=== PATIENT | female | born 1980 | race Caucasian/White ===

== ENCOUNTER 2017-03-29 12:49 | Outpatient (CLI) | payer SELFPAY ==
--- NOTE | 2017-03-30 12:41 | Ultrasound Report ---
FINAL REPORT EXAM: US OB LIMITED HISTORY: well being TECHNIQUE: Transabdominal OB ultrasound. PRIORS: None currently available. FINDINGS: Single intrauterine . Presentation: Cephalic. heart rate: 133 BPM. Amniotic fluid index: 9.94 cm. Within normal limits. IMPRESSION: Single live intrauterine .
--- NOTE | 2017-03-30 12:41 | Ultrasound Report ---
FINAL REPORT EXAM: US OB BPP WO NON-STRESS HISTORY: well being TECHNIQUE: Biophysical profile PRIORS: None currently available. FINDINGS: Breathin Gross Body Movements: 2 Tone: 2 Qualitative AFV: 2 IMPRESSION: Biophysical profile score 8/8.
== END 2017-03-29 16:00 | disposition home or self-care (01) ==
LOC: TRG 12:49
PROVIDERS: ATTEND Obstetrics & Gynecology
DX: O09.523 Supervision of elderly multigravida, third trimester (principal); O48.0 Post-term pregnancy; Z3A.41 41 weeks gestation of pregnancy
CPT/HCPCS: 59025; 76815; 76819

== ENCOUNTER 2017-03-30 21:11 | Inpatient (IN) | payer SELFPAY ==
[2017-03-30] MEDS ORDERED: LACTATED RINGERS 1,000 ML ONE (22:17)
== END 2017-03-31 00:19 | disposition home or self-care (01) | DRG 781 ==
LOC: LD 21:11
PROVIDERS: ADMIT Obstetrics & Gynecology; ATTEND Obstetrics & Gynecology
DX: O26.893 Other specified pregnancy related conditions, third trimester (principal); Z3A.41 41 weeks gestation of pregnancy
CPT/HCPCS: 96360; 96361; J7120

== ENCOUNTER 2017-04-03 09:30 | Inpatient (IN) | payer MEDICAID, OTHER ==
[2017-04-03] MEDS ORDERED: SUBLIMAZE IV PRN (09:50)
[2017-04-03] MEDS ORDERED: XYLOCAINE 2% INFILTRATI ONE (09:50)
[2017-04-03] MEDS ORDERED: BRETHINE IVP PRN (09:50)
[2017-04-03] MEDS ORDERED: ePHEDrine SULFATE IV PRN ×2 (09:50→12:21)
[2017-04-03] MEDS ORDERED: MINERAL OIL PO PRN (09:50)
[2017-04-03] MEDS ORDERED: BRETHINE SUB-Q PRN (09:50)
--- NOTE | 2017-04-03 09:53 | History and Physical Report ---
History of Present Illness Date of examination: 04/03/17 Date of admission: 04/03/17 09:43 Chief complaint: active labor History of present illness: now 41.4 weeks presents in active labor. Uneventful course at [facility]. GBS neg. Past History Past Medical History: no pertinent history Past Surgical History: no surgical history Family/Genetic History: none - Obstetrical History Expected Date of Delivery: 03/23/17 Actual Gestation: 41 Week(s) 4 Day(s) : 3 Para: 2 Hx # Term Pregnancies: 2 Number of Living Children: 2 Medications and Allergies Allergies Allergy/AdvReac Type Severity Reaction Status Date / Time No Known Allergies Allergy Verified 03/29/17 13:11 Home Medications Medication Instructions Recorded Confirmed Last Taken Type No Known Home Medications [No 11/17/15 11/17/15 Unknown History Reported Home Medications] Active Meds: Active Medications Ephedrine Sulfate (Ephedrine Sulfate) 10 mg IV Q2M PRN PRN Reason: Hypotension Fentanyl (Sublimaze) 100 mcg IV Q2H PRN PRN Reason: Labor Pain Lactated Ringer's (Lactated Ringers) 1,000 mls @ 125 mls/hr IV DIRECT NIRMALA Oxytocin/Sodium Chloride (Pitocin/Ns 20 Unit/1000ml Drip) 20 units in 1,000 mls @ 125 mls/hr IV DIRECT NIRMALA Lidocaine (Xylocaine 2%) 20 ml INFILTRATI ONCE ONE Stop: 04/03/17 09:51 Mineral Oil (Mineral Oil) 30 ml PO QHS PRN PRN Reason: Constipation Terbutaline Sulfate (Brethine) 0.25 mg SUB-Q ONCE PRN PRN Reason: Hyperstimulation/Hypertonicity Terbutaline Sulfate (Brethine) 0.25 mg IVP ONCE PRN PRN Reason: Hyperstimulation/Hypertonicity Review of Systems All systems: negative - Physical Exam Breasts: Positive: deferred, mass Abdomen: Positive: soft Genitourinary (Female): Positive: normal external genitalia Vulva: both: normal Vagina: Positive: normal moisture Uterus: Positive: enlarged Anus/Rectum: Positive: normal perianal skin Extremities: Positive: normal Deep Tendon Reflex Grade: Normal +2 - Obstetrical FHR: category 1 Uterine Contraction Monitor Mode: External Cervical Dilatation: 8.5 (arom@ 1400 hrs light mec) Cervical Effacement Percentage: 100 station: -1 Uterine Contraction Frequency (min): q2-3 mild Uterine Contraction Pattern: Regular Uterine Contraction Intensity: Mild Results Result Diagrams: 04/03/17 09:45 All other labs normal. Assessment and Plan A: IUP @ 41.4 weeks Active labor Lt. Meconium on AROM P; GBS Negative Epidural placed
[2017-04-03] MEDS ORDERED: PITOCin/NS 20 UNIT/1000ML DRIP 20 UNITS/1,000 ML BAG IV SCH (10:00)
[2017-04-03 10:41] LABS: Mean Corpuscular HGB Conc 35 % (30-34); Mean Corpuscular Hemoglobin 29 pg (28-32); Mean Corpuscular Volume 83 fl (79-97); Platelet Count 211 K/mm3 (140-440); Red Blood Count 4.45 M/mm3 (3.65-5.03); Red Cell Distribution Width 14.9 % (13.2-15.2); White Blood Count 12.4 K/mm3 (4.5-11.0)
[2017-04-03] MEDS: LACTATED RINGERS 1,000 ML IV SCH ×2 (10:45→11:51)
[2017-04-03] MEDS ORDERED: fentaNYL-BUPIV 2 MCG/ML-0.125% 200 MCG/100 ML BAG EPIDURAL ONE (11:46)
[2017-04-03] MEDS ORDERED: NARCAN 2 MG/2 ML IV PRN (12:21)
--- NOTE | 2017-04-03 12:21 | Anesthesia Consultation ---
Anesthesia Consult and Med Hx Date of service: 04/03/17 - Airway Anesthetic Teeth Evaluation: Good ROM Head & Neck: Adequate Mental/Hyoid Distance: Adequate Mallampati Class: Class II Intubation Access Assessment: Probably Good - Pre-Operative Health Status ASA Pre-Surgery Classification: ASA3 Proposed Anesthetic Plan: Epidural, Spinal - Pulmonary Hx Asthma: No COPD: No Hx Pneumonia: No - Cardiovascular System Hx Hypertension: No - Central Nervous System Hx Seizures: No Hx Psychiatric Problems: No - Endocrine Hx Renal Disease: No Hx End Stage Renal Disease: No Hx Hypothyroidism: No Hx Hyperthyroidism: No - Hematic Hx Anemia: No Hx Sickle Cell Disease: No - Other Systems Hx Alcohol Use: No Hx Obesity: Yes (BMI 42.9)
[2017-04-03] MEDS ORDERED: fentaNYL-BUPIV 2 MCG/ML-0.125% 200 MCG/100 ML BAG EPIDURAL SCH (13:00)
[2017-04-03] MEDS ORDERED: BOOSTRIX IM ONE (13:16)
[2017-04-03] MEDS ORDERED: Fluarix Quad 2017-2018(36 MOS+ IM ONE (13:16)
[2017-04-03] MEDS ORDERED: PITOCin/NS 30 UNIT/500ML 30 UNITS/500 ML BAG IV SCH (15:00)
--- NOTE | 2017-04-03 16:20 | Procedure Note ---
OB Delivery Note - Delivery Date of Delivery: 04/03/17 Surgeon: TIERA CAMPBELL Estimated blood loss: 200cc - Vaginal Delivery presentation: vertex Delivery position: OA Intrapartum events: meconium Delivery induction: none Delivery augmentation: rupture of membranes Delivery monitor: external FHT, external uterine Route of delivery: Delivery placenta: spontaneous Delivery laceration: 1st degree Delivery repair: vicryl Anesthesia: epidural Delivery comments: of a viable female 9# 2oz on 04/03/2017 @ 1557 over first degree laceration. Apgars 9/9. Placenta delivered 3VCI. Laceration repaired with 2-0 vicryl. Mother and baby doing well. - A at 1 minute: 9 at 5 minutes: 9 Infant Gender: Female (9# 2oz)
[2017-04-04] MEDS: MOTRIN PO PRN ×4 (00:30→20:01)
[2017-04-04] MEDS ORDERED: BOOSTRIX IM ONE (06:00)
[2017-04-04] MEDS ORDERED: LANSINOH TP PRN (07:30)
[2017-04-04] MEDS ORDERED: MILK OF MAGNESIA PO PRN (07:30)
[2017-04-04] MEDS ORDERED: TYLENOL PO PRN (07:30)
[2017-04-04] MEDS ORDERED: ZOFRAN IV PRN (07:30)
[2017-04-04] MEDS ORDERED: PHENERGAN PO PRN (07:30)
[2017-04-04] MEDS ORDERED: TUCKS PAD TP PRN (07:30)
[2017-04-04] MEDS ORDERED: BENADRYL PO PRN (07:30)
[2017-04-04 07:37] LABS: Hematocrit 34.6 % (30.3-42.9); Hemoglobin 11.4 gm/dl (10.1-14.3)
[2017-04-04] MEDS ORDERED: SENOKOT S PO SCH (08:00)
[2017-04-04] MEDS ORDERED: SODIUM CHLORIDE FLUSH SYRINGE 10 ML IV PRN (08:00)
[2017-04-04] MEDS ORDERED: DULCOLAX PR PRN (10:00)
[2017-04-04] MEDS ORDERED: FEOSOL PO SCH (10:00)
[2017-04-04] MEDS ORDERED: PRENATAL VITAMIN PO SCH (10:00)
[2017-04-04] MEDS ORDERED: COLACE PO SCH (10:00)
--- NOTE | 2017-04-04 10:30 | Progress Note ---
Assessment and Plan A: PP Day #1 Stable P: Follow Routine Orders D/C home today per patient request RTO in 6 Weeks Subjective - Subjective Date of service: 04/04/17 Patient reports: appetite normal, voiding normally, pain well controlled, flatus , ambulating normally : doing well, bottle feeding Objective - Vital Signs Latest vital signs: Vital Signs Temp Pulse Resp BP BP Pulse Ox 04/04/17 08:15 97.1 F L 60 20 90/51 04/04/17 05:21 97.7 F 20 105/62 04/04/17 00:32 98.5 F 22 114/70 04/04/17 00:30 18 04/03/17 20:24 98.7 F 84 20 115/67 97 04/03/17 18:21 80 128/65 04/03/17 18:06 85 127/76 04/03/17 17:51 82 135/77 04/03/17 17:36 88 141/86 04/03/17 17:21 81 121/73 04/03/17 17:06 82 121/70 04/03/17 16:52 84 122/73 04/03/17 16:36 78 117/69 04/03/17 16:21 90 119/75 04/03/17 15:56 86 97 04/03/17 15:51 90 97 04/03/17 15:46 78 97 04/03/17 15:41 90 97 04/03/17 15:36 86 98 04/03/17 15:31 89 97 04/03/17 15:26 80 98 04/03/17 15:21 82 97 04/03/17 15:16 92 H 98 04/03/17 15:11 78 97 04/03/17 15:06 77 97 04/03/17 15:01 79 98 04/03/17 14:56 81 98 04/03/17 14:51 73 98 04/03/17 14:46 83 98 04/03/17 14:41 77 98 04/03/17 14:36 79 99 04/03/17 14:31 74 98 04/03/17 14:26 74 98 04/03/17 14:21 81 98 04/03/17 14:16 75 98 04/03/17 14:11 81 99 04/03/17 14:06 73 98 04/03/17 14:01 77 99 04/03/17 13:56 74 98 04/03/17 13:51 79 99 04/03/17 13:46 72 98 04/03/17 13:41 74 98 04/03/17 13:36 72 98 04/03/17 13:31 78 98 04/03/17 13:26 75 98 04/03/17 13:21 76 98 04/03/17 13:16 74 97 04/03/17 13:11 75 98 04/03/17 13:06 72 98 04/03/17 13:01 75 98 04/03/17 12:56 80 98 04/03/17 12:51 72 98 04/03/17 12:46 72 98 04/03/17 12:41 73 98 04/03/17 12:36 87 97 04/03/17 12:31 76 97 04/03/17 12:26 75 97 04/03/17 12:21 85 97 04/03/17 12:16 85 97 04/03/17 12:11 82 97 04/03/17 12:06 83 97 04/03/17 12:01 84 96 04/03/17 11:56 85 96 04/03/17 11:52 16 116/73 04/03/17 11:51 81 96 04/03/17 11:46 107 H 96 04/03/17 11:41 83 97 04/03/17 11:36 86 98 04/03/17 11:31 82 98 04/03/17 11:26 87 96 04/03/17 11:21 83 97 04/03/17 11:16 89 97 04/03/17 11:11 94 H 99 04/03/17 11:06 81 98 04/03/17 11:01 91 H 98 04/03/17 10:56 82 99 04/03/17 10:51 98 H 99 Intake and Output 04/03/17 04/04/17 04/04/17 22:59 06:59 14:59 Intake Total 360 360 Output Total 1000 600 Balance -640 -240 Intake: Oral 360 Intake, Free Water 360 Output: Urine 1000 600 Void 1000 600 Other: Total, Intake Amount 360 Total, Output Amount 1000 600 Estimated Blood Loss 200 - Exam Breasts: Present: normal Cardiovascular: Present: Regular rate Lungs: Present: Clear to auscultation, Normal air movement Abdomen: Present: normal appearance, soft, normal bowel sounds Uterus: Present: normal, firm, fundal height below umbilicus Extremities: Present: normal - Labs Labs: Abnormal lab results 04/03/17 Range/Units 09:45 WBC 12.4 H (4.5-11.0) K/mm3 MCHC 35 H (30-34) %
--- NOTE | 2017-04-04 10:31 | Discharge Summary ---
Providers - Providers Date of Admission: 04/03/17 09:43 Date of discharge: 04/04/17 Attending physician: HELEN HIGGINS MD Primary care physician: HELEN HIGGINS MD Hospitalization Reason for admission: active labor Delivery: Episiotomy: none Laceration: 1st degree Other procedures: none complications: none Discharge diagnosis: IUP at term delivered [place] baby: female Condition at discharge: Good Disposition: DC-01 TO HOME OR SELFCARE Plan - Provider Discharge Summary Activity: routine, no sex for 6 weeks, no heavy lifting 4 weeks, no strenuous exercise Diet: routine Instructions: routine Additional instructions: [] Smoking cessation referral if applicable(refer to patient education folder for contact #) [] Refer to [facility]'s [facility] Booklet Call your doctor immediately for: * Fever > 100.5 * Heavy vaginal bleeding ( >1 pad per hour) * Severe persistent headache * Shortness of breath * Reddened, hot, painful area to leg or breast * Drainage or odor from incision. * Keep incision clean and dry at all times and follow doctor's instructions regarding bathing/showering - Follow up plan Follow up: HELEN HIGGINS MD [Primary Care Provider] - 6 Weeks
[2017-04-04] MEDS ORDERED: Fluarix Quad 2017-2018(36 MOS+ IM ONE (12:00)
[2017-04-04 19:08] VITALS: BP 122/66
== END 2017-04-04 20:30 | disposition home or self-care (01) | DRG 775 ==
LOC: TRG 09:30 → LD 09:43 → OB 19:18
PROVIDERS: ADMIT Obstetrics & Gynecology; ATTEND Obstetrics & Gynecology
PROC: 10E0XZZ Delivery of Products of Conception, External Approach (ICD-10-PCS; principal; 2017-04-03)
PROC: 0HQ9XZZ Repair Perineum Skin, External Approach (ICD-10-PCS; 2017-04-03)
PROC: 3E0R3BZ Introduction of Anesthetic Agent into Spinal Canal, Percutaneous Approach (ICD-10-PCS; 2017-04-03)
PROC: 00HU33Z Insertion of Infusion Device into Spinal Canal, Percutaneous Approach (ICD-10-PCS; 2017-04-03)
PROC: 3E0234Z Introduction of Serum, Toxoid and Vaccine into Muscle, Percutaneous Approach (ICD-10-PCS; 2017-04-04)
DX: O77.0 Labor and delivery complicated by meconium in amniotic fluid (principal); Z68.41 Body mass index [BMI] 40.0-44.9, adult; Z3A.41 41 weeks gestation of pregnancy; Z37.0 Single live birth; Z23 Encounter for immunization; O99.214 Obesity complicating childbirth; E66.9 Obesity, unspecified; O70.0 First degree perineal laceration during delivery
CPT/HCPCS: 36415; 85014; 85018; 85027; 86850; 86900; 86901; 90471; 90686; 90715; 99211; G0463; J2590; J3010; J7120